=== PATIENT | male | born 1950 | race Caucasian/White ===

== ENCOUNTER 2019-01-16 16:41 | Emergency (ER) | payer MEDICARE, OTHER ==
[2019-01-16 17:10] LABS: ABSOLUTE BASOPHILS # (AUTO) 0.1 10^3/uL (0.0-0.2); ABSOLUTE EOSINOPHILS # (AUTO) 0.2 10^3/uL (0.0-0.6); ABSOLUTE LYMPHOCYTES (AUTO) 1.4 10^3/uL (0.5-4.7); ABSOLUTE MONOCYTES (AUTO) 0.6 10^3/uL (0.1-1.4); ABSOLUTE NEUT (AUTO) 2.6 10^3/uL (1.7-8.2); BASOPHILS % (AUTO) 1.2 % (0-2); EOSINOPHILS % (AUTO) 3.7 % (0-6); HEMATOCRIT 39.8 % (37.9-51.0); HEMOGLOBIN 13.4 g/dL (13.5-17.0); LYMPHOCYTES % (AUTO) 28.6 % (13-45); MEAN CORPUSCULAR HEMOGLOBIN 30.9 pg (27.0-33.4); MEAN CORPUSCULAR HGB CONC 33.8 g/dL (32.0-36.0); MEAN CORPUSCULAR VOLUME 92 fl (80-97); MONOCYTES % (AUTO) 12.1 % (3-13); PLATELET COUNT 278 10^3/uL (150-450); RED BLOOD COUNT 4.34 10^6/uL (4.35-5.55); RED CELL DISTRIBUTION WIDTH 13.9 % (11.5-14.0); SEGMENTED NEUTROPHILS % (AUTO) 54.4 % (42-78); TOTAL CELLS COUNTED % (AUTO) 100 %; WHITE BLOOD COUNT 4.8 10^3/uL (4.0-10.5)
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
[2019-01-16 17:39] LABS: ALANINE AMINOTRANSFERASE 20 U/L (21-72); ALBUMIN 3.7 g/dL (3.5-5.0); ALKALINE PHOSPHATASE 96 U/L (38-126); ANION GAP 10 (5-19); ASPARTATE AMINO TRANSFERASE 20 U/L (17-59); BILIRUBIN,DIRECT 0.2 mg/dL (0.0-0.4); BILIRUBIN,TOTAL 0.3 mg/dL (0.2-1.3); BLOOD UREA NITROGEN 20 mg/dL (7-20); CALCIUM 9.8 mg/dL (8.4-10.2); CARBON DIOXIDE 23 mmol/L (22-30); CHLORIDE 108 mmol/L (98-107); GLUCOSE 104 mg/dL (75-110); POTASSIUM 3.7 mmol/L (3.6-5.0); SODIUM 141.2 mmol/L (137-145)
[2019-01-16 17:40] LABS: ACETAMINOPHEN < 10 ug/mL (10-30); ALCOHOL < 10 mg/dL (NONE DETECTED); SALICYLATE < 1.0 mg/dL (2.0-20.0)
--- NOTE | 2019-01-16 18:19 | EKG REPORT ---
SEVERITY:- ABNORMAL ECG - SINUS TACHYCARDIA FIRST DEGREE AV BLOCK : Confirmed by: Charlie Washington MD 16-Jan-2019 18:19:06
[2019-01-16] MEDS ORDERED: HYDROXYZINE PAMOATE 50 MG CAPSULE PO PRN (19:35)
[2019-01-16] MEDS ORDERED: QUETIAPINE FUMARATE 25 MG TABLET PO ONE (22:15)
[2019-01-16] MEDS ORDERED: ACETAMINOPHEN 325 MG TABLET PO ONE (23:18)
[2019-01-17 06:45] LABS: APPEARANCE,URINE CLEAR; BILIRUBIN,URINE NEGATIVE (NEGATIVE); COLOR,URINE STRAW; GLUCOSE, URINE NEGATIVE (NEGATIVE); KETONES,URINE NEGATIVE (NEGATIVE); LEUKOCYTE ESTERASE,URINE NEGATIVE (NEGATIVE); NITRITE,URINE NEGATIVE (NEGATIVE); PROTEIN,URINE NEGATIVE (NEGATIVE); URINE SPECIFIC GRAVITY 1.009; UROBILINOGEN,URINE NEGATIVE mg/dL (<2.0)
[2019-01-17 06:53] VITALS: BP 118/79
[2019-01-17 06:59] LABS: URINE AMPHETAMINES SCREEN UNCONFIRMED POSITIVE; URINE BARBITURATES SCREEN NEGATIVE; URINE BENZODIAZEPINES SCREEN NEGATIVE; URINE COCAINE SCREEN NEGATIVE; URINE MARIJUANA (THC) SCREEN NEGATIVE; URINE METHADONE SCREEN NEGATIVE; URINE PHENCYCLIDINE SCREEN NEGATIVE
[2019-01-17] MEDS ORDERED: PAROXETINE HCL 25 MG TAB.SR.24H PO SCH (10:00)
--- NOTE | 2019-01-17 10:15 | ER Document Report ---
Doctor's Note Notes: 01/17/19 10:14 Rounds: Chart reviewed and patient interviewed. Patient appears to be stable. Cooperative and polite. Being evaluated for bipolar disorder. Vital signs are all essentially normal. Lab studies were normal except for positive for amphetamines of that the patient is on Adderall. Patient appears to be [facility] stable for transfer or discharge. Gagandeep Reno MD
[2019-01-17] MEDS ORDERED: LAMOTRIGINE 100 MG TABLET PO SCH (12:00)
[2019-01-17] MEDS ORDERED: DIVALPROEX SODIUM 250 MG TABLET.DR PO SCH (12:00)
[2019-01-17] MEDS ORDERED: ACETAMINOPHEN 325 MG TABLET ONE (13:48)
== END 2019-01-17 15:30 ==
LOC: ER 16:41
DX: F29 Unspecified psychosis not due to a substance or known physiological condition (principal); F31.9 Bipolar disorder, unspecified; F90.9 Attention-deficit hyperactivity disorder, unspecified type; Z79.899 Other long term (current) drug therapy; Z87.891 Personal history of nicotine dependence
CPT/HCPCS: 93005; 99285; 36415; 80307 ×4; 85025; 80053; 81001; 93010; A9270 ×7; J3490